=== PATIENT | male | born 1975 | race Caucasian/White ===

== ENCOUNTER 2017-10-28 12:54 | Day surgery (SDC) | payer OTHER ==
--- NOTE | 2017-10-28 07:06 | GHP ---
[f rep st] HISTORY AND PHYSICAL DATE OF ADMISSION: 10/28/2017 CURRENT COMPLAINT: Right shoulder pain. HISTORY OF PRESENT ILLNESS: The patient is a 42-year-old male who recently was snowboarding. Landed hard onto his right shoulder. Had pain and deformity. X-ray exam reveals a distal clavicle fractur e. He wished to have surgery in order to resolve the problem. ALLERGIES: He lists no drug allergies. MEDICATIONS: He lists no medications. PAST MEDICAL HISTORY: He lists no prior medical problems. PAST SURGICAL HISTORY: Prior surgery including ACL reconstruction. SOCIAL HISTORY: He is a nonsmoker and social drinker. PHYSICAL EXAMINATION: HEENT: The pupils are equal, round, and reactive to light. CHEST: Clear to auscultation. HEART: Regular rate and rhythm. ABDOMEN: Soft and nontender. MUSCULOSKELETAL: He remains grossly neurologically intact into the right upper extremity with an obvious step-off deformi ty at the distal end of the clavicle. X-ray exam reveals a mildly comminuted fracture of the distal clavicle. ASSESSMENT AND PLAN: The patient is status post right distal clavicle fracture. PLAN: The plan is to take him to the operating room to undergo an open reduction, internal fixation of the right clavicle. /[id number]/MODL
[2017-10-28] MEDS ORDERED: fentaNYL 100 MCG/2 ML INJ ONE (13:26)
[2017-10-28 13:27] VITALS: PULSE 71
[2017-10-28] MEDS ORDERED: ACETAMINOPHEN 500 MG TAB PO ONE (13:30)
[2017-10-28] MEDS ORDERED: TRANEXAMIC ACID 3,000 MG in NS 50 ML IRR ONE (13:30)
[2017-10-28] MEDS ORDERED: ceFAZolin 2 GM/SWFI 2 GM/20 ML SYR IVP ONE (13:30)
[2017-10-28] MEDS ORDERED: ROPIVACAINE 0.2% 80 MG, EPINEPHrine 0.2 MG, KETOROLAC TROMETHAMINE 30 MG, morphINE 10 M... IU ONE (13:30)
[2017-10-28] MEDS ORDERED: PREGABALIN 150 MG CAP PO ONE (13:30)
[2017-10-28] MEDS: fentaNYL 100 MCG/2 ML INJ IVP PRN ×3 (13:32→14:15)
[2017-10-28] MEDS ORDERED: PROPOFOL 200 MG/20 ML VIAL ONE (14:18)
[2017-10-28] MEDS ORDERED: fentaNYL 250 MCG/5 ML INJ ONE (14:18)
[2017-10-28] MEDS ORDERED: DEXAMETHASONE 4 MG/ML VIAL ONE ×2 (14:20)
[2017-10-28] MEDS ORDERED: ONDANSETRON 4 MG/2 ML VIAL ONE (14:20)
[2017-10-28] MEDS ORDERED: POLYMYXIN B SULFATE 500,000 UNIT/10 ML SYR IRR ONE (14:20)
[2017-10-28] MEDS ORDERED: LIDOCAINE 2% JELLY 5 ML TUBE ONE (14:20)
[2017-10-28] MEDS ORDERED: LIDOCAINE 2% 5 ML SDV ONE (14:20)
[2017-10-28] MEDS ORDERED: BUPIVACAINE/EPI 0.5% 30 ML SDV ONE (14:20)
[2017-10-28] MEDS ORDERED: BACITRACIN 50,000 UNITS/10 ML SYR IRR ONE (14:21)
[2017-10-28] MEDS ORDERED: MIDAZOLAM 2 MG/2 ML VIAL IVP ONE (14:24)
--- NOTE | 2017-10-28 14:26 | PDANEPAE ---
ANE Past Medical History - Cardiovascular History Hx Hypertension: No Hx Arrhythmias: No Hx Chest Pain: No Hx Coronary Artery / Peripheral Vascular Disease: No Hx CHF / Valvular Disease: No Hx Palpitations: No - Pulmonary History Hx COPD: No Hx Asthma/Reactive Airway Disease: No Hx Recent Upper Respiratory Infection: No Hx Oxygen in Use at Home: No Hx Sleep Apnea: No Sleep Apnea Screening Result - Last Documented: Negative - Neurologic History Hx Cerebrovascular Accident: No Hx Seizures: No Hx Dementia: No - Endocrine History Hx Diabetes: No - Renal History Hx Renal Disorders: No - Liver History Hx Hepatic Disorders: No - Neurological & Psychiatric Hx Hx Neurological and Psychiatric Disorders: No - Cancer History Hx Cancer: No - Congenital Disorder History Hx Congenital Disorders: No - GI History Hx Gastrointestinal Disorders: No - Other Health History Other Health History: none - Chronic Pain History Chronic Pain: No - Surgical History Prior Surgeries: none ANE Review of Systems Review of Systems: - Exercise capacity METS (RN): 6 METS ANE Patient History - Allergies Allergies/Adverse Reactions: No Known Allergies Allergy (Verified 10/27/17 11:42) - Home Medications Home Medications: NO HOME MEDS 04/18/10 [Last Taken Unknown] - NPO status NPO Since - Liquids (Date): 10/28/17 NPO Since - Liquids (Time): 08:00 NPO Since - Solids (Date): 10/27/17 NPO Since - Solids (Time): 18:30 - Anes Hx Anes Hx: no prior problems - Smoking Hx Smoking Status: Light smoker - Family Anes Hx Family Hx Anesthesia Complications: none ANE Labs/Vital Signs - Vital Signs Blood Pressure: 127/80 Heart Rate: 71 Respiratory Rate: 18 O2 Sat (%): 97 Height: 182.88 cm Weight: 76.204 kg ANE Physical Exam - Airway Neck exam: FROM Mallampati Score: Class 1 Mouth exam: normal dental/mouth exam - Pulmonary Pulmonary: no respiratory distress, no rales or rhonchi, clear to auscultation - Cardiovascular Cardiovascular: regular rate and rhythym, no murmur, rub, or gallop - ASA Status ASA Status: II ANE Anesthesia Plan Anesthesia Plan: GA w LMA
[2017-10-28] MEDS ORDERED: TRANEXAMIC ACID 3,000 MG/50 ML BAG IRR ONE (14:39)
[2017-10-28] MEDS ORDERED: CALCIUM CHLORIDE 1 GM/10 ML INJ ONE ×2 (14:40→14:59)
[2017-10-28] MEDS ORDERED: THROMBIN (BOVINE) 5,000 UNIT VIAL TP ONE ×2 (14:40→14:59)
[2017-10-28] MEDS ORDERED: PHENYLEPHRINE HCL 100 MCG/ML SYR ONE (15:09)
[2017-10-28] MEDS ORDERED: ACETAMINOPHEN 500 MG TAB PO PRN (16:35)
[2017-10-28] MEDS ORDERED: NALOXONE HCL 0.4 MG/ML INJ IVP PRN (16:35)
[2017-10-28] MEDS ORDERED: PROMETHAZINE HCL 25 MG/ML INJ IVP PRN (16:35)
[2017-10-28] MEDS ORDERED: ONDANSETRON 4 MG/2 ML VIAL IVP PRN (16:35)
[2017-10-28] MEDS ORDERED: MEPERIDINE 25 MG/ML SYR IVP PRN (16:35)
[2017-10-28] MEDS ORDERED: fentaNYL 100 MCG/2 ML INJ IVP PRN (16:35)
[2017-10-28] MEDS ORDERED: DIAZEPAM 10 MG/2 ML SYR IVP PRN (16:35)
[2017-10-28] MEDS ORDERED: OXYCODONE/APAP 5/325 TAB PO PRN (16:35)
[2017-10-28] MEDS ORDERED: LR 500 ML IV PRN (16:35)
--- NOTE | 2017-10-28 16:41 | POSTOPPROG ---
Post Op Note Date of Operation: 10/28/17 Surgeon: Sandra Slaughter Sourcing Coordinator: [email or web address] Anesthesiologist: amanda Anesthesia: LMA Pre-op Diagnosis: r clavicle fx Procedure: orif r clavicle with fluoro Inf/Abcess present in the surg proc area at time of surgery?: No Depth: Deep Incisional (Fascial) EBL: 50-100
--- NOTE | 2017-10-28 17:01 | POSTANESTH ---
Post Anesthetic Evaluation Cardiovascular Status: Normal, Stable, Similar to Pre-Op Cond Respiratory Status: Normal, Stable, Similar to Pre-op Cond. Level of Consciousness/Mental Status: Can Participate in Eval, Mildly Sleepy, Arousable Pain Control: Adequate, Prn Tx Ordered Nausea/Vomiting Control: Adequate, Prn Tx Ordered Complications Possibly Related to Anesthesia: None Noted
[2017-10-28 17:22] VITALS: RESP 15; TEMP 97.9
[2017-10-28] MEDS ORDERED: OXYCODONE/APAP 5/325 TAB ONE (17:40)
[2017-10-28 17:52] VITALS: BP 129/83; O2SAT 97
--- NOTE | 2017-10-28 18:33 | GOP ---
[f rep st] OPERATIVE REPORT DATE OF OPERATION: 10/28/2017 SURGEON: Sandra Slaughter MD SERVICER TRAVEL TRAILERS: Pedro Pablo Singh CSFA, LSA, whose presence was medically necessary. ANESTHESIA: By LMA. PREOPERATIVE DIAGNOSIS: Right distal clavicle fracture. POSTOPERATIVE DIAGNOSIS: Right distal clavicle fracture. PROCEDURE PERFORMED: Right distal clavicle open reduction and internal fixation with fluoroscopy. FINDINGS: INDICATIONS: This is a 42-year-old male who 3 days ago crashed while trying to avoid a child, while snowboarding. Fell hard onto his right shoulder, had pain and deformity. Underwent an x-ray, was fo und to have a distal clavicle fracture. He wished to have surgery in order to resolve the problem. DESCRIPTION OF PROCEDURE: Patient was brought to the operating room after the right side had been id entified as correct side by the patient, nurse and physician. Once in the operating room, he was dawson faby under general anesthesia using an LMA. Once asleep, he was placed in a beach chair position with the right shoulder sterilely prepped and draped in the usual fashion using GSI solution. Once steri nubia prepped and draped, a linear incision was made extending from the posterior portion of the AC dom int, extending to the midportion of the clavicle and with sharp dissection, carried down through the skin and subcutaneous layers. Sharp dissection was carried through the muscular portion of the platy sma, onto the bone itself. Much of the periosteal stripping had been done by the fracture sites. Th e ends of the bones were able to be irrigated, thoroughly debrided of any blood clot in the area. He was noted to have a large oblique fragment of the inferior portion of the clavicle. The 2 main frag ments were able to be reduced. Once in place, it was noted that a 13-hole distal clavicle plate from [employer] fit best. Therefore, multiple locking screws were placed in the distal fragment and the dist al portion of the plate, at which point, the main proximal portion of the clavicle was reduced onto t he distal clavicle. Once in position, lag screws were placed through the proximal fragment in order to pull and reduce the proximal fragment to the plate and to the distal fragment. There was a single butterfly fragment underneath the fracture, that was reduced and held in place with a small 2.3 mm s crew. Once in place, locking screws were used to fill more of the end of the plate, and 3.5 mm screw s were placed in the proximal portion of the plate, holding the rest of the plate in place. Once fin ished, fluoroscopy was used to examine the plate to ensure adequate length to the screws, and that th ey were not too long. The wound was then thoroughly irrigated with antibiotic solution. Joint cockt ail was injected around the actual fracture site itself. The wound was irrigated with tranexamic aci d. The wound was then closed using layers using 0 Vicryl suture for the periosteal layer and the fas cial layer. Plasmagel was injected around the actual fracture site itself. 0 Vicryl and 2-0 Vicryl suture were used to close the subcutaneous layers, and a 3-0 V-Loc suture in a running subcuticular s titch was used to close the skin. The wound was dressed with Steri-Strips, Xeroform, 4 x 4, and Tega derm. He was completely undraped in the operating room, had a sling placed on the right upper extremity. Devorah saenz was then woken up, extubated, transferred onto a stretcher, and sent to recovery room in good condi tion. /[id number]/MODL
== END 2017-10-28 19:50 | disposition home or self-care (01) ==
LOC: FSGY 12:54
PROVIDERS: ATTEND Orthopaedic Surgery
DX: S42.031A Displaced fracture of lateral end of right clavicle, initial encounter for closed fracture (principal); W19.XXXA Unspecified fall, initial encounter; Y93.23 Activity, snow (alpine) (downhill) skiing, snowboarding, sledding, tobogganing and snow tubing
CPT/HCPCS: C1713; J0171; J0690; J1100; J1885; J2250; J2370; J2405; J2704; J2795; J3010